=== PATIENT | female | born 1990 | race Caucasian/White ===

== ENCOUNTER 2016-07-20 16:18 | Emergency (ER) | payer BC ==
--- NOTE | 2016-07-20 16:27 | UCPHY ---
H & P Patient Type: New HPI/ROS: HPI CHIEF COMPLAINT: Nausea, lightheadedness, generalized weakness, feeling as if I am going to pass out, facial numbness and tingling HISTORY OF PRESENT ILLNESS: this patient is a 25-year-old female, tells me she has no significant medical history she presents to the urgent care by private vehicle ambulated back to her ER room 9, complaints of generalized weakness, her legs feel very heavy, lightheadedness, nausea and feeling as if she is going to pass out she also tells me that she feels like the left side of her face and neck or tingling. She denies focal weakness. Denies chest pain denies headache, denies stiff neck or meningeal signs denies fever or recent illness. Past Medical History: Denies any significant medical history however review of chart endorses gastritis Past Surgical History: no recent surgical history Social History: denies use of drugs alcohol tobacco products Family History: noncontributory ROS REVIEW OF SYSTEMS: A comprehensive 10 point review of systems is otherwise negative aside from elements mentioned in the history of present illness. Exam Constitutional appears well nontoxic, triage nursing summary reviewed, vital signs reviewed, awake/alert. Eyes normal conjunctivae and sclera, EOMI, PERRLA. HENT normal inspection, atraumatic, moist mucus membranes, no epistaxis, neck supple/ no meningismus, no raccoon eyes. Respiratory clear to auscultation bilaterally, normal breath sounds, no respiratory distress, no wheezing. Cardiovascular rate normal, regular rhythm, no murmur, no edema, distal pulses normal. Gastrointestinal soft, non-tender, no rebound, no guarding, normal bowel sounds, no distension, no pulsatile mass. Genitourinary no CVA tenderness. Musculoskeletal no midline vertebral tenderness, full range of motion, no calf swelling, no tenderness of extremities, no meningismus, good pulses, neurovascularly intact. Skin pink, warm, & dry, no rash, skin atraumatic. Neurologic awake, alert and oriented x 3, AAOx3, moves all 4 extremities equally, motor intact, sensory intact, CN II-XII intact, normal cerebellar, normal vision, normal speech. specifically I do not appreciate a focal neuro deficit, no weakness, cranial nerves are intact, good loan auditor strength, good lower extremity strength, normal gait. Sensation intact. Psychiatric normal mood/affect. Heme/Lymph/Immune no lymphadenopathy. Differential Diagnosis: Includes but is not limited to in a particular order dehydration, electrolyte abnormality, cardiac arrhythmia, doubt acute coronary syndrome, brain tumor, doubt CVA, urinary tract infection, , thyroid disease Medical Decision Making:This patient had an IV established obtain blood work, patient had an EKG, chest x-ray, CT scan of her head, urinalysis test will gently hydrated with normal saline and IV Zofran for nausea. Re-evaluate Re-evaluation: EKG interpretation by me on record in [employer] system. Impression At time of EKG 1653, this is sinus rhythm rate of 51, otherwise no acute ischemic changes specifically no ST elevation, ST depression, T-wave abnormalities prolonged intervals. CT scan of the head without IV contrast The results of the study are negative for anything acute The study was read by Dr. Jose Manuel Nolan I viewed the images myself on the PACS system. 191: Re-examination at this time this patient is resting comfortably she has no complaints specifically denies headache, chest pain, shortness of breath, numbness or tingling, weakness. She feels much better after IV fluids. She had extensive workup for multitude of complaints her CT scan of her head is unremarkable, blood work unremarkable including negative troponin negative D- dimer, negative electrolytes, urinalysis and drug screen. EKG is nonischemic. She wants to go home she feels much better after IV fluids it is possible that she was dehydrated feeling lightheaded causing her symptoms. She does understand if she has any worsening symptoms includes focal weakness, numbness or tingling, nausea, vomiting, chest pain, shortness of breath, headaches return to the emergency room. ED x-ray chest one view: negative for acute cardiopulmonary disease. Source: Patient - Medical/Surgical History Hx Asthma: No Hx Chronic Respiratory Disease: No Hx Diabetes: No Hx Cardiac Disease: No Hx Renal Disease: No Hx Cirrhosis: No Hx Alcoholism: No Hx HIV/AIDS: No Hx Splenectomy or Spleen Trauma: No Other PMH: "digestive issues", GERD - Family History Significant Family History: No pertinent family hx - Social History Smoking Status: Never smoked Constitutional: Initial Vital Signs Temperature (C) 36.6 C 07/20/16 16:29 Heart Rate 50 L 07/20/16 16:29 Respiratory Rate 18 07/20/16 16:29 Blood Pressure 117/79 07/20/16 16:29 O2 Sat (%) 96 07/20/16 16:29 O2 Delivery Mode Room Air Allergies/Adverse Reactions: No Known Allergies Allergy (Unverified 04/07/16 12:15) Home Medications: Medication Instructions Recorded NK [No Known Home Meds] 07/20/16 Medical Decision Making - Data Points Laboratory Results: Laboratory Results 07/20/16 16:47 07/20/16 16:47 07/20/16 07/20/16 07/20/16 17:55 17:55 16:47 WBC RBC Hgb Hct MCV MCH MCHC RDW Plt Count MPV Neut % (Auto) Lymph % (Auto) [place] % (Auto) Eos % (Auto) Baso % (Auto) Nucleat RBC Rel Count Absolute Neuts (auto) Absolute Lymphs (auto) Absolute Monos (auto) Absolute Eos (auto) Absolute Basos (auto) Absolute Nucleated RBC Immature Gran % Immature Gran # PT INR APTT D-Dimer Sodium Potassium Chloride Carbon Dioxide Anion Gap BUN Creatinine Estimated GFR Glucose Calcium Magnesium Total Bilirubin Conjugated Bilirubin Unconjugated Bilirubin AST ALT Alkaline Phosphatase Troponin I NT-Pro-B Natriuret Pep Total Protein Albumin Lipase TSH Beta HCG, Qual NEGATIVE Urine Color Pending Urine Appearance Pending Urine pH Pending Ur Specific Eva Pending Urine Protein Pending Urine Ketones Pending Urine Blood Pending Urine Nitrate Pending Urine Bilirubin Pending Urine Urobilinogen Pending Ur Leukocyte Esterase Pending Ur Culture Indicated? Pending Urine Glucose Pending Urine Opiates Screen NEGATIVE (NEGATIVE) Urine Barbiturates NEGATIVE (NEGATIVE) Ur Phencyclidine Scrn NEGATIVE (NEGATIVE) Ur Amphetamine Screen NEGATIVE (NEGATIVE) U Benzodiazepines Scrn NEGATIVE (NEGATIVE) Urine Cocaine Screen NEGATIVE (NEGATIVE) U Marijuana (THC) Screen NEGATIVE (NEGATIVE) 07/20/16 07/20/16 07/20/16 16:47 16:47 16:47 WBC 6.82 10^3/uL 10^3/uL (3.80-9.50) RBC 4.47 10^6/uL 10^6/uL (4.18-5.33) Hgb 13.9 g/dL g/dL (12.6-16.3) Hct 40.6 % % (38.0-47.0) MCV 90.8 fL fL (81.5-99.8) MCH 31.1 pg pg (27.9-34.1) MCHC 34.2 g/dL g/dL (32.4-36.7) RDW 12.2 % % (11.5-15.2) Plt Count 316 10^3/uL 10^3/uL (150-400) MPV 9.8 fL fL (8.7-11.7) Neut % (Auto) 49.3 % % (39.3-74.2) Lymph % (Auto) 41.3 % % (15.0-45.0) [place] % (Auto) 6.6 % % (4.5-13.0) Eos % (Auto) 1.8 % % (0.6-7.6) Baso % (Auto) 0.7 % % (0.3-1.7) Nucleat RBC Rel Count 0.0 % % (0.0-0.2) Absolute Neuts (auto) 3.36 10^3/uL 10^3/uL (1.70-6.50) Absolute Lymphs (auto) 2.82 10^3/uL 10^3/uL (1.00-3.00) Absolute Monos (auto) 0.45 10^3/uL 10^3/uL (0.30-0.80) Absolute Eos (auto) 0.12 10^3/uL 10^3/uL (0.03-0.40) Absolute Basos (auto) 0.05 10^3/uL 10^3/uL (0.02-0.10) Absolute Nucleated RBC 0.00 10^3/uL 10^3/uL (0-0.01) Immature Gran % 0.3 % % (0.0-1.1) Immature Gran # 0.02 10^3/uL 10^3/uL (0.00-0.10) PT 13.4 SEC SEC (12.0-15.0) INR 1.05 (0.83-1.16) APTT 31.3 SEC SEC (23.0-38.0) D-Dimer < 0.27 ug/mLFEU ug/mLFEU (0.00-0.50) Sodium 139 mEq/L mEq/L (134-144) Potassium 4.0 mEq/L mEq/L (3.5-5.2) Chloride 101 mEq/L mEq/L (97-110) Carbon Dioxide 26 mEq/l mEq/l (22-31) Anion Gap 12 mEq/L mEq/L (8-16) BUN 13 mg/dL mg/dL (7-23) Creatinine 0.7 mg/dL mg/dL (0.6-1.0) Estimated GFR > 60 Glucose 84 mg/dL mg/dL (70-100) Calcium 10.0 mg/dL mg/dL (8.5-10.4) Magnesium 2.0 mg/dL mg/dL (1.6-2.3) Total Bilirubin 0.6 mg/dL mg/dL (0.1-1.4) Conjugated Bilirubin 0.2 mg/dL mg/dL (0.0-0.5) Unconjugated Bilirubin 0.4 mg/dL mg/dL (0.0-1.1) AST 21 IU/L IU/L (14-46) ALT 24 IU/L IU/L (9-52) Alkaline Phosphatase 60 IU/L IU/L (38-126) Troponin I < 0.012 ng/mL ng/mL (0-0.034) NT-Pro-B Natriuret Pep 38 pg/mL pg/mL (0-125) Total Protein 7.8 g/dL g/dL (6.3-8.2) Albumin 4.3 g/dL g/dL (3.5-5.0) Lipase 120.0 IU/L IU/L (23-300) TSH 3.840 uIU/mL uIU/mL (0.465-4.680) Beta HCG, Qual Urine Color Urine Appearance Urine pH Ur Specific Eva Urine Protein Urine Ketones Urine Blood Urine Nitrate Urine Bilirubin Urine Urobilinogen Ur Leukocyte Esterase Ur Culture Indicated? Urine Glucose Urine Opiates Screen Urine Barbiturates Ur Phencyclidine Scrn Ur Amphetamine Screen U Benzodiazepines Scrn Urine Cocaine Screen U Marijuana (THC) Screen Medications Given: Discontinued Medications Sodium Chloride (Ns) 1,000 mls @ 0 mls/hr IV ONCE ONE PRN Reason: Wide Open Stop: 07/20/16 16:36 Last Admin: 07/20/16 17:07 Dose: 1,000 mls Ondansetron HCl (Zofran) 4 mg IVP EDNOW ONE Stop: 07/20/16 16:37 Last Admin: 07/20/16 17:07 Dose: 4 mg Departure - Departure Disposition: Home, Routine, Self-Care Clinical Impression: Lightheadedness Condition: Good Instructions: Lightheadedclem (ED) Additional Instructions: 1. Drink lots of fluids stay well-hydrated 2. return to the urgent care or emergency room if develops worsening symptoms questions or concerns. - PQRS PQRS Measurement: n/a
[2016-07-20 16:32] VITALS: TEMP 98
[2016-07-20] MEDS ORDERED: NS 1,000 ML IV ONE (16:35)
[2016-07-20] MEDS ORDERED: ONDANSETRON 4 MG/2 ML VIAL IVP ONE (16:36)
[2016-07-20 16:55] LABS: % IMMATURE GRANULYOCYTES 0.3 % (0.0-1.1); ABSOLUTE IMMATURE GRANULOCYTES 0.02 10^3/uL (0.00-0.10); ADD DIFF? NO; ADD MORPH? NO; ADD SCAN? NO; ATYPICAL LYMPHOCYTE FLAG 10 (0-99); FRAGMENT RBC FLAG 0 (0-99); HEMATOCRIT 40.6 % (38.0-47.0); HEMOGLOBIN 13.9 g/dL (12.6-16.3); LEFT SHIFT FLG 0 (0-99); LIPEMIA HEMOLYSIS FLAG 90 (0-99); MEAN CELL HEMOGLOBIN 31.1 pg (27.9-34.1); MEAN CELL HEMOGLOBIN CONCENTR. 34.2 g/dL (32.4-36.7); MEAN CELL VOLUME 90.8 fL (81.5-99.8); MEAN PLATELET VOLUME 9.8 fL (8.7-11.7); PLATELET CLUMPS FLAG 0 (0-99); PLATELET COUNT 316 10^3/uL (150-400); RED BLOOD CELL COUNT 4.47 10^6/uL (4.18-5.33); RED CELL DISTRIBUTION WIDTH 12.2 % (11.5-15.2)
--- NOTE | 2016-07-20 16:56 | CPEKG ---
Heart Rate: 51 RR Interval: 1176 P-R Interval: 140 QRSD Interval: 86 QT Interval: 452 QTC Interval: 417 P [place]: 52 QRS [place]: 66 T Wave [place]: 50 EKG Severity - NORMAL ECG - EKG Impression: SINUS RHYTHM Electronically Signed By: Octaviano Estes 21-Jul-2016 15:10:37
[2016-07-20 17:07] LABS: APTT 31.3 SEC (23.0-38.0); INR 1.05 (0.83-1.16); PROTIME(PATIENT) 13.4 SEC (12.0-15.0)
[2016-07-20 17:08] LABS: ALANINE AMINOTRANSFERASE 24 IU/L (9-52); ALBUMIN 4.3 g/dL (3.5-5.0); ALKALINE PHOSPHATASE 60 IU/L (38-126); ANION GAP 12 mEq/L (8-16); ASPARTATE AMINOTRANSFERASE 21 IU/L (14-46); BILIRUBIN,TOTAL 0.6 mg/dL (0.1-1.4); BILIRUBIN-CONJUGATED 0.2 mg/dL (0.0-0.5); BILIRUBIN-UNCONJUGATED 0.4 mg/dL (0.0-1.1); CARBON DIOXIDE 26 mEq/l (22-31); CHLORIDE 101 mEq/L (97-110); CREATININE 0.7 mg/dL (0.6-1.0); GLOMERULAR FILTRATION RATE > 60; GLUCOSE 84 mg/dL (70-100); SODIUM 139 mEq/L (134-144); TOTAL PROTEIN 7.8 g/dL (6.3-8.2)
[2016-07-20 17:40] LABS: TROPONIN I < 0.012 ng/mL (0-0.034)
[2016-07-20 19:18] LABS: COLOR YELLOW; LEUKOCYTE ESTERASE,URINE NEGATIVE (NEGATIVE); NITRITE,URINE NEGATIVE (NEGATIVE); PH,URINE 6.5 (5.0-7.5)
[2016-07-20 19:30] VITALS: BP 118/62; PULSE 78; RESP 20; O2SAT 97
== END 2016-07-20 19:28 | disposition home or self-care (01) ==
LOC: CED 16:18
DX: R42 Dizziness and giddiness (principal); R11.0 Nausea
CPT/HCPCS: 70450-PO; 71010-PO; 80048-PO; 80076-PO; 80307-PO; 81003-PO; 83690-PO; 83735-PO; 83880-PO; 84443-PO; 84484-PO; 84703-PO; 85025-PO; 85378-PO; 85610-PO; 85730-PO; 93010-PO; 96361-PO; 96374-PO; 99205-PO; G0463-PO; J2405

== ENCOUNTER 2016-09-26 14:10 | Emergency (ER) | payer BC ==
[2016-09-26 14:21] VITALS: TEMP 98.1
--- NOTE | 2016-09-26 15:20 | EDPHY ---
H & P Stated Complaint: Recent US, larger ovary on right side HPI/ROS: CHIEF COMPLAINT: Abnormal US at [facility], RLQ Abdominal Pain HISTORY OF PRESENT ILLNESS: This patient is a healthy 25 year old female with history of right dermoid ovarian cyst who arrives following an abnormal ultrasound performed at [facility] [place] earlier today. Her last menstrual period began 08/07/16, and she sates she took a positive home test as her current period is late. Yesterday, she noted sharp pain on her right side in addition to cramping similar to her usual menstrual cramping. [facility] [place]. Pelvic exam showed bacterial vaginosis, and she was prescribed medication to treat this. She states she had a second positive test and was referred to [facility] [place] in [place] for an ultrasound today. Repeat urine test there was negative. She reports her ultrasound revealed "spots" and that she was told there was something "hard" on the right side. She endorses a normal amount of a white vaginal discharge without odor and lower central back pain. She has not had dysuria, urgency, or frequency. She denies any vaginal bleeding, history of recent illness, fever, nausea, vomiting, or diarrhea. She denies history of abdominal surgeries. She is currently sexually active, but not taking control or using other forms of protection. REVIEW OF SYSTEMS: A ten point review of systems was performed and is negative with the exception of the items mentioned in the HPI. - Personal History Current Tetanus/Diphtheria Vaccine: Unsure Current Tetanus Diphtheria and Acellular Pertussis (TDAP): Unsure - Medical/Surgical History PMH: 1. GERD 2. Dermoid ovarian cyst Hx Asthma: No Hx Chronic Respiratory Disease: No Hx Diabetes: No Hx Cardiac Disease: No Hx Renal Disease: No Hx Cirrhosis: No Hx Alcoholism: No Hx HIV/AIDS: No Hx Splenectomy or Spleen Trauma: No Other PMH: "digestive issues", GERD, - Social History Smoking Status: Never smoked Additional Social History: Lives in [place]. Works at [employer]. Non-smoker. Occasional alcohol consumption. Sexually active. - Physical Exam Exam: General Appearance: Alert. Vital signs reviewed. Eyes: Pupils equal and round, no conjunctival injection, no discharge. Anicteric. ENT, Mouth: Mucous membranes are moist, no oropharyngeal erythema or edema. Neck: No lymphadenopathy, supple. Respiratory: Lungs are clear to auscultation; no wheezes, rales, or rhonchi. Cardiovascular: Regular rate and rhythm; no murmur, rub, or gallop. Gastrointestinal: Suprapubic tenderness, right lower quadrant tenderness. No guarding. Abdomen is soft, no masses or organomegaly, bowel sounds normal. Skin: Warm and dry, no rashes on exposed skin, normal color. Back: Nontender to palpation over the thoracolumbar spine. No CVAT. Extremities: No lower extremity edema, no calf tenderness or swelling. Neurological: Alert and oriented. Moving all four extremities easily and equally. Psychiatric: Normal affect. Constitutional: Initial Vital Signs Temperature (C) 36.7 C 09/26/16 14:17 Heart Rate 64 09/26/16 14:17 Respiratory Rate 18 09/26/16 14:17 Blood Pressure 113/68 09/26/16 14:17 O2 Sat (%) 100 09/26/16 14:17 O2 Delivery Mode Room Air Allergies/Adverse Reactions: No Known Allergies Allergy (Unverified 04/07/16 12:15) Home Medications: Medication Instructions Recorded NK [No Known Home Meds] 07/20/16 Medical Decision Making - Diagnostics Imaging: Discussed imaging studies w/ manager call Radiologist ED Course/Re-evaluation: This patient is a healthy 25 year old female presenting with right-sided abdominal pain and wishing to follow up regarding an abnormal [facility] this morning. IV established, plan to order labs including CBC, CHEM, and HCG. Plan for pelvic ultrasound as we do not have formal results of her earlier US. The patient declines pain medication at this time. 16:15 HCG positive for . Quant pending. 16:[address] Manuelito Rivero, radiologist, regarding the patient's pelvic ultrasound. No viable IUP identified, may be too early to tell. There is a persistent complex-appearing right ovarian mass consistent with the patient's prior history of a dermoid (teratoma), with no evidence of torsion. 16:51 HCG Quant 21.12 mIU/mL, consistent with 0-10 weeks . 17:10 Reassessed patient. Discussed positive result. She is still experiencing RLQ tenderness. No guarding. Plan to consult with OB. 18:[address] Toussaint, STEAM FITTER HELPER. The patient will follow up with Dr. Toussaint's group on Wednesday. Reassessed patient. She will be discharged home in good condition. She is to follow up with obstetrics and for repeat blood testing on Wednesday. She has been given a prescription for outpatient lab work--Beta HCG. Return precautions discussed. The patient is comfortable with this plan. Differential Diagnosis: * The differential diagnosis for the patient's abdominal pain included but was not limited to ovarian cyst, ectopic , SAB, pelvic inflammatory disease , ovarian torsion, urinary tract infection, cholecystitis, and appendicitis. - Data Points Laboratory Results: Laboratory Results 09/26/16 15:10 09/26/16 15:10 Departure - Departure Disposition: Home, Routine, Self-Care Clinical Impression: Positive blood test Abdominal pain Qualifiers: Abdominal location: lower abdomen, unspecified Qualified Code(s): R10.30 - Lower abdominal pain, unspecified Condition: Good Instructions: First Trimester (ED) Additional Instructions: 1. Follow up with an hardware design engineer on Wednesday. We have referred you to Dr. Toussaint, bad work gatherer. Anyone in her group who is available Wednesday is okay. 2. You will be given a prescription for a follow-up blood test. Please take this to the outpatient lab on Wednesday morning. 3. Take Tylenol (acetaminophen) 650mg every 4 to six hours as needed for pain. 4. Return to the ED if you experience fever, vomiting, lightheadedness or fainting, severe uncontrollable pain,heavy bleeding, or other worsening of condition. Referrals: Leticia Toussaint MD [Medical Doctor] - As per Instructions Report Scribed for: Bing Humphrey Report Scribed by: Shereen Shelton Date of Report: 09/26/16 Time of Report: 15:50 Physician Review and Approval Statement: 09/30/16 10:04 Portions of this chart were entered by a medical record consultant. I have reviewed the documentation and agree with it as evidenced by my signature. I personally performed the HPI, PE, and MDM.
[2016-09-26 15:25] LABS: % IMMATURE GRANULYOCYTES 0.2 % (0.0-1.1); ABSOLUTE IMMATURE GRANULOCYTES 0.02 10^3/uL (0.00-0.10); ADD DIFF? NO; ADD MORPH? NO; ADD SCAN? NO; ATYPICAL LYMPHOCYTE FLAG 0 (0-99); FRAGMENT RBC FLAG 0 (0-99); HEMOGLOBIN 13.5 g/dL (12.6-16.3); LEFT SHIFT FLG 0 (0-99); LIPEMIA HEMOLYSIS FLAG 90 (0-99); MEAN CELL HEMOGLOBIN 30.8 pg (27.9-34.1); MEAN CELL HEMOGLOBIN CONCENTR. 33.8 g/dL (32.4-36.7); MEAN CELL VOLUME 91.1 fL (81.5-99.8); MEAN PLATELET VOLUME 10.4 fL (8.7-11.7); PLATELET CLUMPS FLAG 10 (0-99); PLATELET COUNT 279 10^3/uL (150-400); RED BLOOD CELL COUNT 4.39 10^6/uL (4.18-5.33); RED CELL DISTRIBUTION WIDTH 12.2 % (11.5-15.2)
[2016-09-26 15:39] LABS: ANION GAP 11 mEq/L (8-16); CALCIUM 9.8 mg/dL (8.5-10.4); CARBON DIOXIDE 25 mEq/l (22-31); CHLORIDE 105 mEq/L (97-110); CREATININE 0.7 mg/dL (0.6-1.0); GLOMERULAR FILTRATION RATE > 60; GLUCOSE 75 mg/dL (70-100); POTASSIUM 3.7 mEq/L (3.5-5.2); SODIUM 141 mEq/L (134-144)
[2016-09-26 18:41] VITALS: RESP 16
[2016-09-26 18:48] VITALS: BP 106/59; PULSE 56; O2SAT 98
== END 2016-09-26 18:48 | disposition home or self-care (01) ==
DX: R10.31 Right lower quadrant pain (principal); Z32.01 Encounter for pregnancy test, result positive

== ENCOUNTER → 2016-09-30 | Outpatient (CLI) | payer BC | LOC: FIMAGING 16:55 | PROVIDERS: ATTEND Midwife | DX: O02.81 Inappropriate change in quantitative human chorionic gonadotropin (hCG) in early pregnancy (principal); R10.9 Unspecified abdominal pain ==

== ENCOUNTER → 2018-02-24 | Outpatient (CLI) | payer BC | LOC: BMCIMAGING 11:30 | PROVIDERS: ATTEND Family Medicine | DX: R05 Cough (principal) ==

== ENCOUNTER → 2018-10-07 | Outpatient (CLI) | payer BC | LOC: CIMAGING 07:36 ==